=== PATIENT | male | born 1995 | race Caucasian/White ===

== ENCOUNTER 2016-07-12 08:54 | Emergency (ER) | payer OTHER ==
[2016-07-12 08:58] VITALS: BP 143/67; BMI 31.1
--- NOTE | 2016-07-12 09:22 | DR.MBACK ---
HPI - Time Seen Time seen: 09:19 - PCP Primary Care Physician: Ritesh CABELLO - Complaint Chief Complaint Doctors Comments: Patient admits to low back pain right sided. He was seen by pcp on yesterday given an injection has done well until sneezing and spasm increased, medicatin is not helping Chief Complaint:: PT. C/O BACK SPASMS. PT. ORIGINALLY HURT HIS BACK MONDAY. PT. WENT TO SEE PCP YESTERDAY AND GOT A SHOT AND WAS GIVEN SOME ORAL MEDICATIONS. PT. STATES HE GOT BETTER BUT THEN HE COUGHED THIS MORNING AND THE PAIN HAS WORSENED. PAIN IS IN THE MID TO UPPER BACK AREA ON THE RIGHT SIDE. - Source History Provided: Patient - Mode of Arrival Mode of Arrival: Ambulatory - Timing Onset of Chief Complaint: 07/10/16 PMH - PMH Past Medical History: No Past Surgical History: Yes Surgical History: Ortho Surgery - Family History History of Family Medical Conditions: Yes Family Medical History: Cancer - Social History Does patient currently use any type of tobacco product: No Have you used tobacco products in the last 12 months: No Type of Tobacco Use: None Does any household member use tobacco: No Alcohol Use: Occasionally Do you use any recreational Drugs:: No Lives With: Spouse Lives Where: Home - infectious screening In the last 2 months have you had wt loss of >10#?: NO Have you had fever, night sweats or hemotysis?: No Have you traveled outside the country in the last 6 months?: No Isolation: Standard ROS - Review of Systems Constitutional: No Symptoms Reported Eyes: No Symptoms Reported ENTM: No Symptoms Reported Respiratoy: No Symptoms Reported Cardiovascular: No Symptoms Reported Gastrointestinal/Abdominal: No Symptoms Reported Genitourinary: No Symptoms Reported Neurological: No Symptoms Reported Musculoskeletal: Muscle Pain, Back (Right low back pain) Integumentary: No Symptoms Reported, See HPI Hematologic/Lymphatic: No Symptoms Reported Endocrine: No Symptoms Reported Psychiatric: No Symptoms Reported All Other Systems: Reviewed and Negative PE - Vital Signs Vitals: Temperature 98.1 F Pulse Rate 72 Respiratory Rate 20 Blood Pressure 143/67 O2 Sat by Pulse Oximetry 100 - General Limitations: No Limitations General Appearance: Alert, In No Apparent Distress - Head Head Exam: Normal Inspection - Eyes Eye exam: Normal Appearance, PERRL, EOMI - ENT ENT Exam: Normal Exam - Chest Chest Inspection: Normal Inspection - Respiratory Respiratory Exam: Normal Lung Sounds Bilat Respiratory Exam: Bilateral Clear to Auscultation - Cardiovascular Cardiovascular Exam: Regular Rate - Abdominal Exam Abdominal Exam: Normal Inspection, Normal Bowel Sounds Abdominal Tenderness: negative: RUQ, RLQ, LUQ, LLQ, Epigastrium, Suprapubic, Diffuse, Mild, Moderate, Severe, Other - Rectal Rectal Exam: Deferred - Genitourinary Exam: Male: Deferred - Extremities Extremities Exam: Normal Inspection, Full ROM - Back Back Exam: Muscle Spasm (low back) - Neurological Neurological Exam: Alert, Oriented X3, CN II-XII Intact - Psychiatric Psychiatric Exam: Normal Affect, Normal Mood - Skin Skin Exam: Warm, Dry, Intact - Diagnosis Discharge Problem: Muscle spasm - Discharge Plan Condition: Stable - Follow ups/Referrals Follow ups/Referrals: YUDI CABELLO [Primary Care Provider] - 3 days - Instructions
[2016-07-12] MEDS ORDERED: VALIUM INJ IM ONE (09:24)
[2016-07-12] MEDS ORDERED: VALIUM INJ ONE (09:26)
== END 2016-07-12 09:45 | disposition home or self-care (01) ==
LOC: ER 09:05
DX: M62.838 Other muscle spasm (principal)
CPT/HCPCS: 96372; 99282; J3360